=== PATIENT | female | born 1970 ===

== ENCOUNTER 2018-05-03 13:55 | Emergency (ER) | payer OTHER ==
[2018-05-03 13:56] VITALS: BMI 32.9
[2018-05-03 14:39] VITALS: RESP 18; TEMP 97.9
[2018-05-03] MEDS ORDERED: Sodium Chloride 0.9% 1,000 ML IV STA (14:50)
[2018-05-03] MEDS ORDERED: DiphenhydrAMINE 50 mg/ml Inj IVP STA (14:51)
[2018-05-03 16:48] LABS: URINE BILIRUBIN NEGATIVE (NEGATIVE); URINE BLOOD NEGATIVE (NEGATIVE); URINE GLUCOSE (UA) NEGATIVE (NEGATIVE); URINE LEUKOCYTE ESTERASE NEGATIVE Leu/uL (NEGATIVE); URINE PROTEIN NEGATIVE mg/dL (<30 mg/dL); URINE UROBILINOGEN 0.2 E.U./dL (<1 E.U./dL)
[2018-05-03 16:50] LABS: BASO # 0.01 K/mm3 (0.0-2.0); BASO % 0.2 % (0.0-3.0); EOS # 0.1 (0.0-0.7); GRAN # 3.39 (1.4-6.5); GRAN % 57.3 % (50.0-68.0); HEMOGLOBIN 10.5 g/dL (12.0-16.0); LYMPH % 33.2 % (22.0-35.0); MEAN CELL VOLUME 83.3 fl (80.0-105.0); MEAN CORPUSCULAR HEMOGLOBIN 26.9 pg (25.0-35.0); MEAN CORPUSCULAR HGB CONC 32.3 g/dl (31.0-37.0); MEAN PLATELET VOLUME 8.6 fl (7.0-11.0); MONO # 0.5 (0.1-0.6); MONO % 8.3 % (1.0-6.0); RBC 3.9 10^6/uL (3.5-6.1); RED CELL DISTRIBUTION WIDTH 14.8 % (11.5-14.5); URINE APPEARANCE SLIGHT-CLOUDY (CLEAR); URINE COLOR YELLOW (YELLOW); WHITE BLOOD COUNT 5.9 10^3/uL (4.5-11.0)
[2018-05-03 16:57] LABS: INR 1.08; PARTIAL THROMBOPLASTIN TIME 29.6 Seconds (25.1-36.5); PROTHROMBIN TIME 12.3 SECONDS (9.4-12.5)
[2018-05-03 16:59] LABS: ALBUMIN 3.6 g/dL (3.0-4.8); ALT/SGPT 31 U/L (7-56); AST/SGOT 28 U/L (14-36); BLOOD UREA NITROGEN 21 mg/dL (7-21); CALCIUM 8.2 mg/dL (8.4-10.5); GFR NON-AFRICAN AMERICAN > 60
[2018-05-03] MEDS ORDERED: Potassium Chloride 20 mEq ER Tab PO STA (17:01)
--- NOTE | 2018-05-03 17:01 | ED PDOC ---
Arrival/HPI - General Chief Complaint: Headache Time Seen by Provider: 05/03/18 14:25 Historian: Patient - History of Present Illness Narrative History of Present Illness (Text): 47 y/o female with no significant PMH presents to the ED c/o headache x 2 days. Describes headache as severe throbbing, located across her forehead. Associated nausea, with a few episodes of non-bloody emesis yesterday, none today. Had a similar headache 2 weeks ago that resolved on its own. Has not taken any medication today for her symptoms. Denies fever, chills, abdominal pain, dizziness, vision changes, neck pain, chest pain, SOB, urinary symptoms, sinus congestion, cough, sore throat, numbness, weakness, paresthesisa, or any other associated symptoms. Past Medical History - Provider Review Nursing Documentation Reviewed: Yes - Reproductive Menopause: Yes - Psychiatric Hx Depression: No Hx Emotional Abuse: No Hx Physical Abuse: No Hx Substance Use: No - Surgical History Hx Appendectomy: Yes - Suicidal Assessment Feels Threatened In Home Enviroment: No Family/Social History - Physician Review Nursing Documentation Reviewed: Yes Family/Social History: No Known Family HX Smoking Status: Never Smoked Hx Alcohol Use: No Hx Substance Use: No Hx Substance Use Treatment: No Allergies/Home Meds Allergies/Adverse Reactions: Allergies No Known Allergies Allergy (Verified 05/03/18 14:34) Review of Systems - Physician Review All systems were reviewed & negative as marked: Yes - Review of Systems Constitutional: Normal. absent: Fatigue, Weight Change, Fevers, Night Sweats, Other Eyes: Normal. absent: Vision Changes, Photophobia, Eye Pain, Other ENT: Normal. absent: Hearing Changes, Tinnitus, TMJ Pain, Voice Changes, Sore Throat, Rhinorrhea, Epistaxis, Sinus Congestion, Other Respiratory: Normal. absent: SOB, Cough, Sputum, Wheezing, Other Cardiovascular: Normal. absent: Chest Pain, Palpitations, Edema, Calf Pain, SINHA, Orthopnea, SY, Syncope, Other Gastrointestinal: Nausea, Vomiting (yesterday). absent: Abdominal Pain, Constipation, Diarrhea, Appetite Changes Genitourinary Female: Normal. absent: Dysuria, Frequency, Hematuria, Urine Output Changes, Vaginal Bleeding, Vaginal Discharge, Other Musculoskeletal: Normal. absent: Arthralgias, Back Pain, Neck Pain, Joint Swelling, Myalgias, Other Skin: Normal. absent: Rash, Pruritis, Skin Lesions, Laceration, Abscess, Ulcer, Cellulitis, Other Neurological: Headache. absent: Dizziness, Focal Weakness, Gait Changes, Speech Changes, Facial Droop, Disequilibrium Endocrine: Normal Hemo/Lymphatic: Normal Psychiatric: Normal Physical Exam Vital Signs Reviewed: Yes Vital Signs Temp Pulse Resp BP Pulse Ox 05/03/18 14:38 97.9 F 83 18 144/88 98 Temp Pulse Resp BP Pulse Ox 97.9 F 76 18 137/71 100 05/03/18 19:05 05/03/18 19:05 05/03/18 19:05 05/03/18 19:05 05/03/18 19:05 Temperature: Afebrile Blood Pressure: Normal Pulse: Regular Respiratory Rate: Normal Appearance: Positive for: Well-Appearing, Non-Toxic, Comfortable Pain Distress: None Mental Status: Positive for: Alert and Oriented X 3 - Systems Exam Head: Present: Atraumatic, Normocephalic Pupils: Present: PERRL Extroacular Muscles: Present: EOMI Conjunctiva: Present: Normal Ears: Present: Normal Mouth: Present: Moist Mucous Membranes Pharnyx: Present: Normal. No: ERYTHEMA, EXUDATE Nose (External): Present: Atraumatic Nose (Internal): Present: Normal Inspection, Moist Neck: Present: Normal Range of Motion. No: Meningeal Signs, MIDLINE TENDERNESS, Paraspinal Tenderness, Lymphadenopathy Respiratory/Chest: Present: Clear to Auscultation, Good Air Exchange. No: Respiratory Distress, Accessory Muscle Use Cardiovascular: Present: Regular Rate and Rhythm, Normal S1, S2, Peripheal Pulses Present. No: Murmurs Abdomen: Present: Normal Bowel Sounds. No: Tenderness, Distention, Peritoneal Signs, Rebound, Guarding Back: Present: Normal Inspection. No: CVA Tenderness, Midline Tenderness Upper Extremity: Present: Normal Inspection, Normal ROM, NORMAL PULSES, Neurovascularly Intact, Capillary Refill < 2s. No: Cyanosis, Edema Lower Extremity: Present: Normal Inspection, NORMAL PULSES, Normal ROM, Neurovascularly Intact, Capillary Refill < 2 s. No: Edema Neurological: Present: GCS=15, CN II-XII Intact, Speech Normal, Motor Func Grossly Intact, Normal Sensory Function, Gait Normal Skin: Present: Warm, Dry, Normal Color. No: Rashes Lymphatic: No: Cervical Adenopathy Psychiatric: Present: Alert, Oriented x 3, Normal Insight, Normal Concentration, Normal Affect, Normal Mood Medical Decision Making ED Course and Treatment: Initial Plan: * CBC, CMP * Coags * UA, culture * Rapid Flu * CT head * IVF * Benadryl * Reglan * Tylenol CMP: K 3.1, will replete CBC: hgb 10.5, patient has history of anemia in the past; asymptomatic; advised to f/u with PMD Coags: wnl UA: wnl Serology: neg Patient reports complete resolution of headache after medications. CT head: negative for intracranial pathology Diagnostic testing results and plan of care discussed with patient, and strict instructions given regarding prescriptions, importance of follow up, and signs to return to Emergency Department, to include dizziness, neck pain, vision changes, fever, chills, or any other new/worsening symptoms. Patient verbalizes understanding of discussion. Patient A&Ox3, ambulating with steady gait, stable for discharge home. - Lab Interpretations Lab Results: 05/03/18 16:30 05/03/18 16:30 Lab Results 05/03/18 16:30: PT 12.3, INR 1.08, APTT 29.6 05/03/18 16:30: Sodium 141, Potassium 3.1 L, Chloride 111 H, Carbon Dioxide 23, Anion Gap 10, BUN 21, Creatinine 0.7, Est GFR ( Amer) > 60, Est GFR (Non- Af Amer) > 60, Random Glucose 104, Calcium 8.2 L, Phosphorus 3.7, Magnesium 2.1, Total Bilirubin 0.5, AST 28, ALT 31, Alkaline Phosphatase 69, Total Protein 7.1, Albumin 3.6, Globulin 3.5, Albumin/Globulin Ratio 1.0 L 05/03/18 16:30: WBC 5.9, RBC 3.90, Hgb 10.5 L, Hct 32.5 L, MCV 83.3, MCH 26.9, MCHC 32.3, RDW 14.8 H, Plt Count 336, MPV 8.6, Gran % 57.3, Lymph % (Auto) 33.2, [place] % (Auto) 8.3 H, Eos % (Auto) 1.0 L, Baso % (Auto) 0.2, Gran # 3.39, Lymph # (Auto) 2.0, [place] # (Auto) 0.5, Eos # (Auto) 0.1, Baso # (Auto) 0.01 05/03/18 16:30: Urine Color Yellow, Urine Appearance Slight-cloudy, Urine pH 6.0, Ur Specific [place] >= 1.030, Urine Protein Negative, Urine Glucose (UA) Negative, Urine Ketones Negative, Urine Blood Negative, Urine Nitrate Negative, Urine Bilirubin Negative, Urine Urobilinogen 0.2, Ur Leukocyte Esterase Negative I have reviewed the lab results: Yes - RAD Interpretation Narrative RAD Interpretations (Text): Head CT: FINDINGS: HEMORRHAGE: No intracranial hemorrhage. BRAIN: No mass effect or edema. No atrophy or chronic microvascular ischemic changes. VENTRICLES: Unremarkable. No hydrocephalus. CALVARIUM: Unremarkable. PARANASAL SINUSES: Unremarkable as visualized. No significant inflammatory changes. MASTOID AIR CELLS: Unremarkable as visualized. No inflammatory changes. OTHER FINDINGS: None. IMPRESSION: No acute intracranial findings Radiology Orders: 05/03/18 14:49 HEAD W/O CONTRAST [CT] Stat - Medication Orders Current Medication Orders: Discontinued Medications Acetaminophen (Tylenol 325mg Tab) 650 mg PO STAT STA Stop: 05/03/18 14:52 Last Admin: 05/03/18 15:21 Dose: 650 mg MAR Pain/Vitals Document 05/03/18 15:21 OCS (Rec: 05/03/18 15:23 OCS [facility]) Pain Reassessment Is This A Pain ReAssessment? No Sleep Is patient sleeping during reassessment? No Presence of Pain Presence of Pain Yes Pain Scale Used Protocol: PSCALES Pain Scale Used Numeric Location Pain Location Body Aircraft Engine Technician Description Constant Intensity 4 Scale Used Numeric Pain Behavior Irritability Facial Grimacing Aggravating Factors ADL's Diphenhydramine HCl (Benadryl) 25 mg IVP STAT STA Stop: 05/03/18 14:52 Last Admin: 05/03/18 15:21 Dose: 25 mg IVP Administration Document 05/03/18 15:21 OCS (Rec: 05/03/18 15:21 OCS [facility]) Charges for Administration # of IVP Administrations 1 Sodium Chloride (Sodium Chloride 0.9%) 1,000 mls @ 999 mls/hr IV .Q1H1M STA Stop: 05/03/18 15:50 Last Admin: 05/03/18 15:18 Dose: 999 mls/hr eMAR Start Stop Document 05/03/18 15:18 OCS (Rec: 05/03/18 15:18 OCS [facility]) Intravenous Solution Start Date 05/03/18 Start Time 15:18 End Date 05/03/18 End time 16:19 Total Infusion Time 61 Metoclopramide HCl (Reglan) 10 mg IVP STAT STA Stop: 05/03/18 14:52 Last Admin: 05/03/18 15:21 Dose: 10 mg IVP Administration Document 05/03/18 15:21 OCS (Rec: 05/03/18 15:21 OCS [facility]) Charges for Administration # of IVP Administrations 1 Disposition/Present on Arrival - Present on Arrival Any Indicators Present on Arrival: No History of DVT/PE: No History of Uncontrolled Diabetes: No Urinary Catheter: No History of Decub. Ulcer: No History Surgical Site Infection Following: None - Disposition Have Diagnosis and Disposition been Completed?: Yes Diagnosis: Headache Disposition: HOME/ ROUTINE Disposition Time: 18:30 Patient Plan: Discharge Condition: IMPROVED Discharge Instructions (ExitCare): Migraine Headache (DC) Print Language: GUINEAN Additional Instructions: Geyser naproxeno diariamente para el dolor segn sea necesario Seguimiento con mdico primario en 2 minaya. Seguimiento con neurlogo dentro de 2 minaya. Regrese a la [place] de emergencias para cualquier sntoma nuevo / que empeora. Prescriptions: Naproxen [Naprosyn] 500 mg PO DAILY PRN #14 tablet PRN Reason: Pain, Moderate (4-7) Referrals: Joao Maharaj MD [Staff Provider] - Follow up with primary Forms: [employer] (Korean), WORK NOTE
--- NOTE | 2018-05-03 17:29 | CT ---
Date of service: 05/03/2018 PROCEDURE: CT HEAD WITHOUT CONTRAST. HISTORY: headache COMPARISON: None available. TECHNIQUE: Axial computed tomography images were obtained through the head/brain without intravenous contrast. Radiation dose: Total exam DLP = 903.4 mGy-cm. This CT exam was performed using one or more of the following dose reduction techniques: Automated exposure control, adjustment of the mA and/or kV according to patient size, and/or use of iterative reconstruction technique. FINDINGS: HEMORRHAGE: No intracranial hemorrhage. BRAIN: No mass effect or edema. No atrophy or chronic microvascular ischemic changes. VENTRICLES: Unremarkable. No hydrocephalus. CALVARIUM: Unremarkable. PARANASAL SINUSES: Unremarkable as visualized. No significant inflammatory changes. MASTOID AIR CELLS: Unremarkable as visualized. No inflammatory changes. OTHER FINDINGS: None. IMPRESSION: No acute intracranial findings
[2018-05-03 19:09] VITALS: BP 137/71; PULSE 76; O2SAT 100
== END 2018-05-03 19:04 | disposition home or self-care (01) ==
LOC: ED 13:55
DX: R51 Headache (principal)
CPT/HCPCS: 70450; 80053; 81003; 83735; 84100; 85025; 85610; 85730; 87804; 96361; 96374; 96375; 99285; J1200; J2765; J7030

== ENCOUNTER 2018-08-06 15:29 | Outpatient (CLI) | payer OTHER | END 2018-08-06 15:30 | disposition home or self-care (01) | LOC: LAB 15:29 ==